=== PATIENT | male | born 1965 | race Caucasian/White ===

== ENCOUNTER 2016-07-13 21:37 | Emergency (ER) | payer SELFPAY ==
[~2016-07-13] VITALS: Ht 162.6 cm; Wt 90.3 kg
[2016-07-13 22:32] VITALS: BP 154/99
--- NOTE | 2016-07-13 23:53 | NUR ---
AMBULATED TO ER OF1
[2016-07-13] MEDS ORDERED: PHENYLEPHRINE 1% 15 ML BTL NS STA (23:57)
--- NOTE | 2016-07-14 00:01 | NUR ---
Patient being evaluated by physician
[2016-07-14] MEDS ORDERED: PHENYLEPHRINE 0.5% 15 ML BTL NS ONE ×2 (00:03)
--- NOTE | 2016-07-14 00:06 | NUR ---
MOVED TO ER BED 7
[2016-07-14] MEDS ORDERED: SILVER NITRATE APPLICATOR 1 EA SWAB TP ONE (00:30)
--- NOTE | 2016-07-14 00:30 | NUR ---
PT IS 50/M BIB FAMILY STATES FOR 3 DAYS EVERY NIGHT HAS BEEN BLEEDING AT NIGHT. TODAY NOSE BLEED 3 TIMES, AND TONIGHT HAS NOT STOPPED FOR PAST 3 HRS. PT STATES NO MED HX. DENIES N/V/D; SKIN IS PINK/WARM/DRY; AAOX4 WITH EVEN AND STEADY GAIT; LUNGS CLEAR BL; HR EVEN AND REGULAR; PT DENIES ANY FEVER, CP, SOB, OR COUGH AT THIS TIME; PATIENT STATES PAIN OF 0/10 AT THIS TIME; VSS; PATIENT POSITIONED FOR COMFORT; HOB ELEVATED; BEDRAILS UP X2; BED DOWN. ER MD MADE AWARE OF PT STATUS.
[2016-07-14 01:05] VITALS: BP 146/97
--- NOTE | 2016-07-14 01:05 | NUR ---
Patient discharged with v/s stable. Written and verbal after care instructions given and explained. Patient alert, oriented and verbalized understanding of instructions. Ambulatory with steady gait. All questions addressed prior to discharge. ID band removed. Patient advised to follow up with PMD. NO Rx WERE given. Patient educated on indication of medication including possible reaction and side effects. Opportunity to ask questions provided and answered.
== END 2016-07-14 01:05 | disposition home or self-care (01) ==
LOC: MED 21:37
DX: R04.0 Epistaxis (principal)
CPT/HCPCS: 30901; 99284